=== PATIENT | male | born 1950 | race Caucasian/White ===

== ENCOUNTER 2018-10-31 09:50 | Emergency (ER) | payer OTHER ==
[2018-10-31 09:57] VITALS: BP 133/83; PULSE 78; RESP 18; TEMP 97.7; O2SAT 97
[2018-10-31] MEDS ORDERED: Amoxicillin-Clav 875-125 mg Tab PO STA (10:30)
[2018-10-31] MEDS ORDERED: Bacitracin 500 Units/gm Oint Foilpak UD TOP ONE (10:32)
[2018-10-31] MEDS ORDERED: Amoxicillin-Clav 875-125 mg Tab PO ONE (10:48)
[2018-10-31] MEDS ORDERED: Bacitracin 500 Units/gm Oint Foilpak UD ONE (10:48)
--- NOTE | 2018-10-31 10:49 | C.PDOC ---
History Of Present Illness 68 y/o. male presents with worsening itching to the right arm s/p dog bite 1 week ago. Pt notes prior PMD visit where he was given an unknown topical medication for itch that works only temporarily . Denies fever, chills, discharge, swelling, or any other associated symptoms. Time Seen by Provider: 10/31/18 10:11 Chief Complaint (Nursing): Abnormal Skin Integrity History Per: Patient History/Exam Limitations: no limitations Onset/Duration Of Symptoms: Days Current Symptoms Are (Timing): Still Present Location Of Injury: Right: Forearm Quality Of Symptoms: Itching. denies: Swollen Past Medical History Reviewed: Historical Data, Nursing Documentation, Vital Signs Vital Signs: Last Vital Signs Temp 97.7 F 10/31/18 09:53 Pulse 78 10/31/18 09:53 Resp 18 10/31/18 09:53 BP 133/83 10/31/18 09:53 Pulse Ox 97 10/31/18 09:53 Primary Care Provider: Arun Wright - Medical History PMH: COPD, HTN, Hypercholesterolemia Denies: Chronic Kidney Disease - [facility] Procedures ENDOSC POLYPECTOMY OF LG INTEST (04/03/14) Family History: States: Unknown Family Hx - Social History Hx Alcohol Use: No Hx Substance Use: No Review Of Systems Constitutional: Negative for: Fever, Chills Skin: Positive for: Rash, Other ((+) right arm itching.) Neurological: Negative for: Weakness, Numbness Physical Exam - Physical Exam Appears: Non-toxic, No Acute Distress Skin: Warm, Dry, Other (posterior right forearm: 2 well healing bite rodriguez. (+) patchy erythema and excoriations to the surrounding posterior rigth forearm. (+) itchy) Head: Atraumatic, Normacephalic Eye(s): bilateral: Normal Inspection Oral Mucosa: Moist Neck: Normal ROM, Supple Extremity: Normal ROM (of the right forearm. ), No Deformity, No Swelling Pulses: Left Radial: Normal, Right Radial: Normal Neurological/Psych: Normal Motor, Normal Sensation, Normal Reflexes ED Course And Treatment O2 Sat by Pulse Oximetry: 97 (RA) Pulse Ox Interpretation: Normal Medical Decision Making Medical Decision Making: Initial plan: -Augmentin Bacitracin Claritin Progress/Update: Pt stable for discharge home. Prescribed Loratadine, Bacitracin Oint, and Augmentin. Advised to follow up with PMD within 2-3 days or return to the ED if symptoms worsen. Disposition - Disposition Referrals: Arun Wright MD [Staff Provider] - Disposition: HOME/ ROUTINE Disposition Time: 10:47 Condition: GOOD Additional Instructions: Stop scratching right arm, Take antibiotics til done. Take Loratidine once a day for itch. Apply bacitracin 1-2 times a day. Follow up with Dr Wright in 2-3 days. Prescriptions: Amoxicillin/Clavulanate [Augmentin 875 MG-125 MG] 1 tab PO BID #14 tab Bacitracin OINT 1 applic TOP BID #1 tube Loratadine 10 mg PO DAILY #30 tablet Instructions: Cellulitis (Skin Infection), Adult (DC) Forms: [facility] (Italian), General Discharge Instructions - Clinical Impression Clinical Impression: Cellulitis of right arm - PA / BUSINESS TRAINER / Resident Statement MD/DO has reviewed & agrees with the documentation as recorded. - Scribe Statement The provider has reviewed the documentation as recorded by the Scribe (Adalgisa Green) All medical record entries made by the Scribe were at my direction and personally dictated by me. I have reviewed the chart and agree that the record accurately reflects my personal performance of the history, physical exam, medical decision making, and the department course for this patient. I have also personally directed, reviewed, and agree with the discharge instructions and disposition.
== END 2018-10-31 11:01 | disposition home or self-care (01) ==
LOC: C.ER 09:50
DX: L03.113 Cellulitis of right upper limb (principal); E78.00 Pure hypercholesterolemia, unspecified; I10 Essential (primary) hypertension; J44.9 Chronic obstructive pulmonary disease, unspecified